=== PATIENT | female | born 1965 | race Caucasian/White ===

== ENCOUNTER 2017-02-21 07:11 | Day surgery (SDC) | payer MEDICARE, MEDICAID ==
[2017-02-21] MEDS ORDERED: MIDAZOLAM HYDROCHLORIDE 10 MG/5 ML SOL PO ONE (08:07)
[2017-02-21] MEDS ORDERED: PROPOFOL 500 MG/50 ML EMU IV ONE (08:18)
[2017-02-21 09:20] VITALS: O2SAT 98
[2017-02-21 09:36] VITALS: BP 105/43; PULSE 77; RESP 18; TEMP 97.4
== END 2017-02-21 10:10 | disposition home or self-care (01) | DRG 951 ==
LOC: SURG 07:11
PROVIDERS: ATTEND Surgery
DX: Z12.11 Encounter for screening for malignant neoplasm of colon (principal)
CPT/HCPCS: G0121; J2704

== ENCOUNTER 2019-04-17 14:56 | Emergency (ER) | payer MEDICARE, MEDICAID ==
[2019-04-17 15:10] VITALS: RESP 18; TEMP 97.4
[2019-04-17 15:32] VITALS: BP 108/73; PULSE 75; O2SAT 96
[2019-04-17] MEDS ORDERED: ACETAMINOPHEN 500 MG 500 MG TAB PO ONE (16:02)
[2019-04-17] MEDS ORDERED: ACETAMINOPHEN 500 MG 500 MG TAB ONE (16:04)
[2019-04-17] MEDS ORDERED: LIDOCAINE HCL 2% GEL TOP ONE ×2 (16:37→16:39)
[2019-04-17] MEDS ORDERED: TDAP VACCINE 0.5 ML SUS IM ONE ×2 (17:36→17:38)
== END 2019-04-17 17:47 | disposition home or self-care (01) | DRG 156 ==
LOC: ED 14:56
DX: S01.21XA Laceration without foreign body of nose, initial encounter (principal); W18.30XA Fall on same level, unspecified, initial encounter; S00.33XA Contusion of nose, initial encounter; Z79.01 Long term (current) use of anticoagulants
CPT/HCPCS: 99283; G0168; 70150; 90471; 90715; 99282; A6402; A9270-GY